=== PATIENT | female | born 1980 | race Caucasian/White ===

== ENCOUNTER 2024-12-07 21:49 | Emergency (ER) | payer OTHER ==
[~2024-12-07] VITALS: Ht 162.6 cm; Wt 65.8 kg
[2024-12-07 22:04] VITALS: BP 128/78; TEMP 98.2
[2024-12-07] MEDS ORDERED: FLUC150T PO (22:20)
[2024-12-07 22:28] VITALS: O2SAT 98
== END 2024-12-07 22:29 | disposition home or self-care (01) ==
LOC: ER 21:54
DX: B37.31 Acute candidiasis of vulva and vagina (principal)